=== PATIENT | female | born 1990 ===

== ENCOUNTER 2017-10-27 13:13 | Emergency (ER) | payer OTHER ==
[~2017-10-27] VITALS: Ht 172.7 cm; Wt 98.4 kg
[2017-10-27] MEDS ORDERED: MAXFE CAPLET1 EACH PO (13:20)
[2017-10-27] MEDS ORDERED: PRENATAL VIT PO (13:21)
== END 2017-10-27 18:41 | disposition home or self-care (01) ==
LOC: ER 13:13
DX: O20.0 Threatened abortion (principal); Z34.01 Encounter for supervision of normal first pregnancy, first trimester

== ENCOUNTER → 2017-12-29 | Emergency (ER) | payer OTHER ==
[~2017-12-29] VITALS: Ht 172.7 cm; Wt 104.3 kg
[~2017-12-29] MED LIST: MAXFE CAPLET1 EACH PO; PRENATAL VIT PO
== END | disposition home or self-care (01) ==
LOC: ER 17:20
DX: O98.512 Other viral diseases complicating pregnancy, second trimester (principal); B33.8 Other specified viral diseases; O99.612 Diseases of the digestive system complicating pregnancy, second trimester; K52.89 Other specified noninfective gastroenteritis and colitis; J11.1 Influenza due to unidentified influenza virus with other respiratory manifestations; Z34.02 Encounter for supervision of normal first pregnancy, second trimester

== ENCOUNTER 2018-05-28 09:48 | Inpatient (IN) | payer OTHER ==
[~2018-05-28] VITALS: Ht 172.7 cm; Wt 116.1 kg
[2018-05-28] MEDS ORDERED: PRENATAL FORMU1 EAC1 PO (10:06)
== END 2018-05-31 12:31 | disposition home or self-care (01) | DRG 788 ==
LOC: LDR 09:48 → O/R 16:08 → OB/GYN 17:52
PROVIDERS: ADMIT Obstetrics & Gynecology
PROC: 4A1HXCZ Monitoring of Products of Conception, Cardiac Rate, External Approach (ICD-10-PCS; 2018-05-28)
PROC: 10D00Z1 Extraction of Products of Conception, Low, Open Approach (ICD-10-PCS; principal; 2018-05-28 14:00)
DX: O82 Encounter for cesarean delivery without indication (principal); Z3A.37 37 weeks gestation of pregnancy; Z37.0 Single live birth